=== PATIENT | female | born 1975 | race Caucasian/White ===

== ENCOUNTER 2017-05-04 08:41 | Outpatient (CLI) ==
[2016-07-23 14:58] VITALS: BMI 56.3
[2017-05-04 09:47] LABS: ALBUMIN 3.2 g/dL (3.4-5.0); ALBUMIN/GLOBULIN RATIO 0.94; ANION GAP 13.2; BILIRUBIN,TOTAL 0.34 mg/dL (0.00-1.20); BUN/CREATININE RATIO 11.76; CHOL/HDL RATIO 3.1 (4.5-5.5); CREATININE 0.68 mg/dL (0.60-1.30); POTASSIUM 4.2 mmol/L (3.5-5.10); TOTAL PROTEIN 6.6 g/dL (6.4-8.2)
== END 2017-05-04 08:42 | disposition home or self-care (01) ==
LOC: LAB 08:41
PROVIDERS: ATTEND Physician Assistant
DX: E11.65 Type 2 diabetes mellitus with hyperglycemia (principal); E78.2 Mixed hyperlipidemia
CPT/HCPCS: 36415; 80053; 80061; 83036

== ENCOUNTER 2017-07-30 08:33 | Outpatient (CLI) ==
[2016-07-23 14:58] VITALS: BMI 56.3
[2017-07-30 09:15] LABS: ALBUMIN 2.9 g/dL (3.4-5.0); ALBUMIN/GLOBULIN RATIO 0.76; ANION GAP 9.2; BILIRUBIN,TOTAL 0.25 mg/dL (0.00-1.20); BUN/CREATININE RATIO 16.66; CALCIUM 8.9 mg/dL (8.2-10.2); CREATININE 0.66 mg/dL (0.60-1.30); POTASSIUM 4.2 mmol/L (3.5-5.10); TOTAL PROTEIN 6.7 g/dL (6.4-8.2)
== END 2017-07-30 08:34 | disposition home or self-care (01) ==
LOC: LAB 08:33
PROVIDERS: ATTEND Physician Assistant
DX: E11.65 Type 2 diabetes mellitus with hyperglycemia (principal)
CPT/HCPCS: 36415; 80053; 83036

== ENCOUNTER 2017-09-11 07:15 | Emergency (ER) ==
[2017-09-11 07:22] VITALS: BP 158/90; TEMP 100.5; BMI 54.5
--- NOTE | 2017-09-11 07:39 | ED.PDOC ---
General ED Provider: Dr. KIEL ALLEN Chief Complaint: Cough Stated Complaint: flu like symptoms Time Seen by Physician: 07:17 Mode of Arrival: Walk-In Information Source: Patient Exam Limitations: No limitations Primary Care Provider: DOLORES ROMERO Nursing and Triage Documentation Reviewed and Agree: Yes Reviewed sepsis parameters & appropriate labs ordered?: Yes System Inflammatory Response Syndrome: Not Applicable Sepsis Protocol: For patient's 13 years and over: Temp is 96.8 and below OR 101 and greater Pulse >90 BPM Resp >20/minute Acutely Altered Mental Status Are patient's symptoms suggestive of a new infection, such as: -Pneumonia -Skin, Soft Tissue -Endocarditis -UTI -Bone, Joint Infection -Implantable Device -Acute Abdominal Infection -Wound Infection -Meningitis -Blood Stream Catheter Infection -Unknown Respiratory Complaint Exam - Respiratory Complaint/Exam Onset/Duration: 1 day Symptoms Are: Still present Initial Severity: Mild Current Severity: Mild Location: Chest Character: Reports: Non-productive cough Aggravating: Reports: None Associated Signs and Symptoms: Reports: URI. Denies: Rapid breathing, Dyspnea, Fever, Chills, Chest pain, Pleuritic chest pain, Wheezing, Hemoptysis, Dizziness , Calf pain, Calf swelling, Edema, Nasal congestion, Hoarseness, Sinus discomfort, Vomiting, Sore throat, Weight loss, Decreased oral intake, Increased thirst, Increased appetite, Increased urination Related History: Reports: Similar episode History of Healthcare-Acquired Pneumonia: No Related Surgical History: Reports: None Pulmonary Embolism Risk Factors: None Cardiac Risk Factors: Reports: None Pseudomonas Risk Factors: Reports: None Tuberculosis Risk Factors: Reports: None Status Asthmaticus Risk Factors: Reports: None Home Oxygen Use: No Recent Stress Test: No Recent Echo/LV Function: No Current Antibiotic Use: No Current Asthma Medication Use: No Respiratory Distress: None Inadequate Respiratory Effort: No Dysphagia Present: No Stridor Present: No JVD Present: No Accessory Muscle Use: No Retractions: Not Present Differential Diagnoses: Bronchitis Review of Systems - Review Of Systems Constitutional: Reports: Malaise Eyes: Reports: No symptoms Ears, Nose, Mouth, Throat: Reports: Throat pain Respiratory: Reports: Cough Cardiac: Reports: No symptoms GI: Reports: No symptoms : Reports: No symptoms Musculoskeletal: Reports: No symptoms Skin: Reports: No symptoms Neurological: Reports: No symptoms Endocrine: Reports: No symptoms Hematologic/Lymphatic: Reports: No symptoms All Other Systems: Reviewed and Negative Past Medical History - Past Medical History Previously Healthy: Yes Endocrine: Reports: DM 2 Cardiovascular: Reports: Hypertension Respiratory: Reports: None Hematological: Reports: None Gastrointestinal: Reports: None Genitourinary: Reports: None Neuro/Psych: Reports: None Musculoskeletal: Reports: None Cancer: Reports: None Last Menstrual Period: 09/11/17 - Surgical History General Surgical History: Reports: None - Family History Family History: Reports: None - Social History Smoking Status: Former smoker Hx Substance Use: No Alcohol Screening: Occasionally - Immunizations Tetanus Shot up to Date: Yes Physical Exam - Physical Exam Appearance: Well-appearing, No pain distress, Well-nourished Eyes: CAROLANN, EOMI, Conjunctiva clear ENT: Erythema Respiratory: Airway patent, Breath sounds clear, Breath sounds equal, Respirations nonlabored Cardiovascular: RRR, Pulses normal, No rub, No murmur GI/: Soft, Nontender, No masses, Bowel sounds normal, No Organomegaly Musculoskeletal: Normal strength, ROM intact, No edema, No calf tenderness Skin: Warm, Dry, Normal color Neurological: Sensation intact, Motor intact, Reflexes intact, Cranial nerves intact, Alert, Oriented Psychiatric: Affect appropriate, Mood appropriate Critical Care Note - Critical Care Note Total Time (mins): 0 Course - Course Orders, Labs, Meds: Orders Category Date Time Status FLU A & B RAPID TEST [MOLECULAR FLU A/B] Stat LAB 09/11/17 07:30 Received Vital Signs: Temp Pulse Resp BP Pulse Ox 09/11/17 07:16 100.5 F H 107 H 18 158/90 H 97 Departure - Departure Time of Disposition: 07:38 Disposition: HOME SELF-CARE Discharge Problem: Cough, Bronchitis Instructions: Viral Syndrome (ED), Acute Bronchitis (ED) Condition: Good Pt referred to PMD for follow-up: Yes Additional Instructions: Please call your Family Physician as soon as possible to schedule a follow-up appointment. Allergies/Adverse Reactions: Allergies No Known Allergies Allergy (Unverified 09/11/17 07:20) Home Medications: Ambulatory Orders Lisinopril [Zestril] 5 mg PO DAILY 09/11/17 Metformin HCl 500 mg PO TID 09/11/17 Disposition Discussed With: Patient, Family
== END 2017-09-11 08:10 | disposition home or self-care (01) ==
LOC: ED 07:15
DX: J40 Bronchitis, not specified as acute or chronic (principal)
CPT/HCPCS: 87502; 99283

== ENCOUNTER 2017-10-25 09:11 | Outpatient (CLI) | END 2017-10-25 09:12 | disposition home or self-care (01) | LOC: LAB 09:11 | PROVIDERS: ATTEND Physician Assistant | DX: E11.65 Type 2 diabetes mellitus with hyperglycemia (principal); E78.2 Mixed hyperlipidemia; E66.01 Morbid (severe) obesity due to excess calories | CPT/HCPCS: 36415; 80053; 80061; 83036 ==

== ENCOUNTER 2018-04-26 09:01 | Outpatient (CLI) | END 2018-04-26 09:02 | disposition home or self-care (01) | LOC: LAB 09:01 | PROVIDERS: ATTEND Nurse Practitioner | DX: E11.65 Type 2 diabetes mellitus with hyperglycemia (principal); E78.2 Mixed hyperlipidemia; F41.9 Anxiety disorder, unspecified | CPT/HCPCS: 36415; 80053; 83036; 84443; 85025 ==

== ENCOUNTER 2018-10-27 16:22 | Emergency (ER) | payer OTHER ==
[2018-10-27 16:28] VITALS: BP 176/68; TEMP 99.5; BMI 48.0
== END 2018-10-27 18:58 | disposition left against medical advice (07) ==
LOC: ED 16:22
DX: R05 Cough (principal); R52 Pain, unspecified

== ENCOUNTER 2019-11-03 16:11 | Observation (INO) ==
--- NOTE | 2019-11-03 16:47 | ED.PDOC ---
General ED Provider: Dr. BELEN THORNTON Chief Complaint: Non-specific Complaint Stated Complaint: In from [facility]. Had visit today - labs drawn and then confirmed (lab/medical report sent to ER). Hgb 6.0 Patient reports that September ER visit (elsewhere) - Hgb was 8.0 Had a heavy period at that time. No other raciel bleeding - denies dark stool - no emesis. No prior history of Anemia or transfusions. No major medical issues. Time Seen by Physician: 16:25 Mode of Arrival: Walk-In Information Source: Patient Exam Limitations: No limitations Primary Care Provider: TOM SARAVIA Nursing and Triage Documentation Reviewed and Agree: Yes Does patient meet sepsis criteria?: No System Inflammatory Response Syndrome: Not Applicable Sepsis Protocol: For patient's 13 years and over: Temp is 96.8 and below OR 101 and greater Pulse >90 BPM Resp >20/minute Acutely Altered Mental Status Are patient's symptoms suggestive of a new infection, such as: -Pneumonia -Skin, Soft Tissue -Endocarditis -UTI -Bone, Joint Infection -Implantable Device -Acute Abdominal Infection -Wound Infection -Meningitis -Blood Stream Catheter Infection -Unknown Review of Systems Review Of Systems Constitutional: Reports No symptoms Ears, Nose, Mouth, Throat: Reports No symptoms Respiratory: Reports No symptoms; Denies Cough Cardiac: Reports No symptoms; Denies Chest pain and Edema GI: Reports No symptoms; Denies Abdominal pain, Blood streaked bowels, C onstipated, Diarrhea, Nausea and Vomiting : Reports No symptoms Skin: Reports No symptoms All Other Systems: Reviewed and Negative [facility] Medical History Anxiety (Acute) Heavy menses (Acute) Mixed hyperlipidemia (Inactive) Type 2 diabetes mellitus (Inactive) Social History Smoking and tobacco status: Current every day smoker Female Reproductive History Menstrual Hx Hysterectomy: No Hx Tubal Ligation: No Physical Exam Physical Exam Appearance: Reports Well-appearing Ill-appearing: None Pain Distress: None Eyes: Reports CAROLANN, EOMI and Conjunctiva clear ENT: Reports Nose normal and Oropharynx normal Neck: Supple Respiratory: Reports Airway patent, Breath sounds clear and Breath sounds equal Cardiovascular: Reports RRR and Pulses normal GI/: Reports Soft, Nontender and No masses Musculoskeletal: Reports Normal strength and ROM intact Skin: Reports Warm, Dry and Normal color Neurological: Reports Sensation intact and Motor intact Psychiatric: Reports Affect appropriate and Mood appropriate Physician Notification Case Discussed Physician Notified: Hanna/Hospitalist Time of Notification: 16:30 Critical Care Note Critical Care Note Total Time (mins): 10 Course Course Hematology/Chemistry: 11/04/19 13:55 11/04/19 04:00 Orders, Labs, Meds: Lab Review 11/03/19 16:50 Urine Color Yellow Urine Clarity Clear Urine pH 6.0 Ur Specific [place] <=1.005 Urine Protein Negative Urine Glucose (UA) Negative Urine Ketones Negative Urine Blood Trace-intact H Urine Nitrite Negative Urine Bilirubin Negative Urine Urobilinogen 0.2 Ur Leukocyte Esterase Trace H Urine Microscopic RBC 0-2 Urine Microscopic WBC 2-5 Ur Squamous Epith Cells 0-2 Orders Category Date Time Status URINALYSIS C & S IF INDICATED Stat LAB 11/03/19 16:50 Completed Medications Discontinued Medications Generic Name Dose Route Start Last Admin Trade Name Freq PRN Reason Stop Dose Admin Acetaminophen 650 mg 11/03/19 18:14 11/04/19 04:26 Tylenol PO 11/03/19 18:15 Not Given ONCE STA Acetaminophen 650 mg 11/03/19 22:45 11/04/19 00:04 Tylenol PO 11/03/19 22:46 650 mg ONCE STA Administration Acetaminophen 650 mg 11/04/19 09:10 11/04/19 09:42 Tylenol PO 11/04/19 09:11 650 mg ONCE STA Administration Diphenhydramine HCl 25 mg 11/03/19 18:24 11/04/19 04:26 Benadryl PO 11/03/19 18:25 Not Given ONCE STA Diphenhydramine HCl 25 mg 11/03/19 22:45 11/03/19 22:54 Benadryl PO 11/03/19 22:46 25 mg ONCE STA Administration Diphenhydramine HCl 25 mg 11/04/19 08:48 11/04/19 09:42 Benadryl PO 11/04/19 08:49 25 mg ONCE STA Administration Furosemide 20 mg 11/03/19 18:14 11/04/19 04:26 Lasix IVP 11/03/19 18:15 Not Given ONCE STA Vital Signs: Temp Pulse Resp BP Pulse Ox 11/03/19 16:11 99.4 F 114 H 18 175/103 H 100 Discharge Plan Discharge Patient Disposition: PLACED OBSERVATION Discharge Problem: Anemia ED Provider: BELEN THORNTON Condition: Good Interventions: Discharge Last Done: 11/03/19 18:04 Discharge Date/Time: 11/03/19 18:04
--- NOTE | 2019-11-03 17:59 | PCM ---
Chief Complaint Chief Complaint: "Low iron---6.0" History of Present Illness History of Present Illness: Morelia Jose is a 44yo female patient from [facility] referral sent to [facility] ER 11/03/2019 16:11 for c/o's "low iron---6.0". Patient notes since March 2019 she has been having heavier menses w/ cramping and has been seen by PA at her [facility] clinic w/ Vaginal US and PAP smear done w/ negative results per patient report. She was at PCP appt today and referred to [facility] ER due to Hgb 6.0 for needed transfusion. In the recent months,she was put on Provera that has since been d/c'd as it did not help her symptoms. No records were sent from her clinic with her to this facility. She notes 3 weeks ago that her regular monthly menses was a 4 hr gushing of maroon to green red blood w/ many small hamburger sized clots. She has had fatigue, "mild" depression, mild to moderate cramping w/ menses that usually lasts 3-5 days w/ moderate vaginal flow/no clots relieved w/ Ibuprofen 600mg prn, and increased generalized weakness w/ occasional panic attacks. She denies severe abdominal/pelvic pain, f/c, hot flashes, loss of appetite, N/V, sweats, vaginal d/c between menses, pain w/ intercourse, SOB, BERRIOS, orthopnea or other symptoms of illness. Ibuprofen is the only treatment used besides rest w/ some relief w/ both. She denies STD hx or other significant health problems at present. She was treated for HTN, Diabetes, and HLD in the past that resolved w/ her weight loss program and approximately 60lb wt. loss in last 2 yrs. Patient does admit to crying in ER w/ anxiety because of her low blood count. Test results were reviewed w/ patient and family and she was reassured that she would be a candidate for blood transfusion w/ her blood levels checked afterwards and that she would be stable before being discharge. She denies any active bleeding since 3 weeks ago. ER labs are UA-essentially WNL and CBC normal except H/H 6.0/22.7, MCV 68.8, MCH 18.2, MCHC 26.4, RDW 19.3, Microcytosis 1+, and Hyperchromasis 1+. Chem profile has been ordered w/ type & cross match for 2 units PRBC's upon arrival to floor. Patient is being admitted for observation with Acute Blood Loss Anemia/Menorrhagia, and transfusion 2 units PRBC's, monitoring of labs, and VS w/ elevated BP that was normal at PCP office today 130's /70's, was elevated in ER 175/103 to 168/72 P88 and now 130/70's after arrival to the unit. Patient no nick her BP gets high when she is anxious. Patient seen in ER by PAPER PRODUCTS INSPECTOR hospitalist w/ acceptance of admission and is not actively bleeding for 3 weeks. She notes that in prior months she was told to take iron medication OTC but has not been very consistent w/ no recent doses yet. Patient has confirmed her full code status per review of ACLS protocol w/ P[employer]ER PRODUCTS INSPECTOR hospitalist. Review of Systems Constitutional: Reports weakness (mild generalized), fatigue and other; Denies fever, chills, sweats and loss of appetite Eyes: Denies blurred vision, double-vision, discharge, itching, pain, redness and photophobia Ears: Denies pain, bleeding, drainage, ringing and hearing loss Nose: Reports other; Denies bleeding, congestion and discharge Throat: Denies pain, swelling and voice change Mouth: Denies bleeding, pain and swelling Respiratory: Denies cough, shortness of air, wheeze, hemoptysis and pain with breathing Cardiovascular: Denies chest pain, left arm pain, diaphoresis, orthopnea, edema, palpitations and syncope Gastrointestinal: Denies abdominal pain, nausea, vomiting, diarrhea, melena, hematemesis, hematochezia, dysphagia and constipation Genitourinary: Reports frequency and abnormal bleeding (None at present; 3 weeks ago 4 hr gushing w/ moderate sized hamburger clots); Denies dysuria, hematuria, incontinence, flank pain, vaginal discharge and pelvic pain Last Menstrual Cycle: 3 weeks ago Neurological: Reports dizziness; Denies headache, seizure, numbness, weakness, speech difficulty, problems with walking, tremor and fainting Musculoskeletal: Denies pain and swelling in joints Skin: Denies rash, pruritus, lacerations, wounds and bruising Hematology: Reports easy bleeding (taking lots of Ibuprofen w/ menses ); Denies easy bruising and swollen glands Endocrine: Reports polyuria ("I drink lots of water.") and other; Denies weight changes, cold intolerance, heat intolerance, excessive thirst and excessive hunger Psychiatric: Reports depression (mild in last few months) and anxiety (1 anxiety attack per week); Denies sleeplessness, hopelessness, suicidal and hallucinations Habits: Reports tobacco use Allergies Allergies Allergy/AdvReac Type Severity Reaction Status Date / Time No Known Allergies Allergy Uncoded 11/03/19 16:43 [facility] Medical History (Updated 11/03/19 @ 18:58 by MARISOL HENDRICKSON) Anxiety (Acute) Heavy menses (Acute) Mixed hyperlipidemia (Inactive) Type 2 diabetes mellitus (Inactive) Social History Smoking and tobacco status: Current every day smoker Medications Medications: No home medications per review w/ patient No medications given in ER. Meds to be ordered w/ blood transfusion. See Plan of care. Body Composition Height: 5 ft 2 in Weight: 261 lb 2 oz Body Mass Index (BMI): 47.7 Vital Signs Temperature: 99.4 F Pulse Rate: 114 Respiratory Rate: 18 Blood Pressure: 175/103 O2 Sat by Pulse Oximetry: 100 Physical Examination Appearance: Reports Ill-appearing Ill-appearing: Mild Pain Distress: None Eyes: Reports CAROLANN, EOMI, Conjunctiva clear and Conjunctiva pale; Denies Conjunctiva inflammed ENT: Reports Ears normal, Nose normal and Oropharynx normal; Denies Rhinorrhea and Epistaxis Neck: Supple Respiratory: Reports Airway patent, Breath sounds clear, Breath sounds equal and Respirations nonlabored; Denies Crackles, Rhonchi, Wheezes and Retractions Cardiovascular: Reports RRR (Telemetry SR Rate 88), Pulses normal, No rub and No murmur GI/: Reports Soft, Nontender, No masses, Bowel sounds normal and No Organomegaly Musculoskeletal: Reports Normal strength, ROM intact, No edema and No calf tenderness Skin: Reports Warm, Dry and Pale; Denies Diaphoretic and Cyanotic Neurological: Reports Sensation intact, Motor intact, Reflexes intact, Cranial nerves intact, Alert and Oriented (X4) Psychiatric: Reports Affect appropriate, Mood appropriate and Anxious (mild but calmed down w/in 30 minutes after seen by P[employer]ODU[employer] INSPECTOR and explained plan of care and monitoring, etc. Patient verbalizes understanding and agrees w/ plan of care.) Lab/Tests/Diagnostic Imaging Lab/Tests/Diagnostic Imaging: Lab Review Laboratory Results Urine Color Yellow (YELLOW) 11/03/19 16:50 Urine Clarity Clear (CLEAR) 11/03/19 16:50 Urine pH 6.0 (5-9) 11/03/19 16:50 Ur Specific [place] <=1.005 (1.005-1.030) 11/03/19 16:50 Urine Protein Negative (NEGATIVE) 11/03/19 16:50 Urine Glucose (UA) Negative (NEGATIVE) 11/03/19 16:50 Urine Ketones Negative (NEGATIVE) 11/03/19 16:50 Urine Blood Trace-intact (NEGATIVE) H 11/03/19 16:50 Urine Nitrite Negative (NEGATIVE) 11/03/19 16:50 Urine Bilirubin Negative (NEGATIVE) 11/03/19 16:50 Urine Urobilinogen 0.2 (0.2) 11/03/19 16:50 Ur Leukocyte Esterase Trace (NEGATIVE) H 11/03/19 16:50 Urine Microscopic RBC 0-2 (0-2) 11/03/19 16:50 Urine Microscopic WBC 2-5 (0-2) 11/03/19 16:50 Ur Squamous Epith Cells 0-2 (0-5) 11/03/19 16:50 Urine Urobilinogen 0.2 Ur Leukocyte Esterase Trace H Urine Microscopic RBC 0-2 Urine Microscopic WBC 2-5 Ur Squamous Epith Cells 0-2 Orders Category Date Time Status ADMIT OBSERVATION [PLACE PATIENT OBSERVATION] .TO ADMISSION 11/03/19 17:38 Active MEDSURG (MONITORED BED) INTAKE & OUTPUT Q8HR CARE 11/03/19 17:40 Active TELEMETRY MONITORING TELE CARE 11/03/19 17:39 Active VITAL SIGNS Q8HR CARE 11/03/19 17:40 Active REGULAR DIET DIETARY 11/03/19 Dinner Ordered CBC W/ AUTO DIFF DAILY@0600 LAB 11/04/19 06:00 Ordered CBC W/ AUTO DIFF DAILY@0600 LAB 11/05/19 06:00 Ordered COMPREHENSIVE METABOLIC PANEL DAILY@0600 LAB 11/04/19 06:00 Ordered COMPREHENSIVE METABOLIC PANEL DAILY@0600 LAB 11/05/19 06:00 Ordered URINALYSIS C & S IF INDICATED Stat LAB 11/03/19 16:50 Completed RESUSCITATION STATUS Routine OTHERS 11/03/19 17:39 Ordered Assessment (1) Anemia due to blood loss, acute: Status: Acute Code(s): D62 - Acute posthemorrhagic anemia SNOMED Code(s): 889148588 (2) Heavy menses: Status: Acute Code(s): N92.0 - Excessive and frequent menstruation with regular cycle SNOMED Code(s): 045623580 Qualifiers: Menorrhagia type: with regular cycle Qualified Code(s): N92.0 - Excessive and frequent menstruation with regular cycle (3) Depression with anxiety: Status: Acute Code(s): F41.8 - Other specified anxiety disorders SNOMED Code(s): 24286692 Plan Plan: Anemia d/t Acute Blood Loss & Heavy Menses--Worsening w/ no active bleeding known at this time. H/H 6.0/22.7, MCV 68.8, MCH 18.2, MCHC 26.4, RDW 19.3, Microcytosis 1+, and Hyperchromasis 1+. Transfuse w/ 2 U PRBC's post type & Xmatch. Give benadryl & tylenol prior to 1st unit and between 2 units w/ Lasix 20mg IVP on same schedule if SBP >170. Telemetry. Recheck H/H 1 hr after 2nd unit of blood. Monitor patient for vaginal and other signs of bleeding. Call P[employer] INSPECTOR hospitalist if any concerns. CMP ordered prior to transfusion. VS per blood transfusion protocol. Patient HFR during transfusion and until Hgb 10.0 and patient free of any symptoms of hypotension.; will need to see PCP and get GARDEN WORKER consult post transfusion for further evaluation and possible hematology consult to study bleeding issues. Repeat CMP and H/H in AM as needed. Depression w/ anxiety--stable at present-denies SI/HI or past hx of same. Needs further evaluation per PCP w/ Thyroid studies and possible MH referral. Monitor patient.
[2019-11-03 18:33] VITALS: BMI 47.5
[2019-11-03] MEDS: BENADRYL PO STA (22:54)
[2019-11-04] MEDS: TYLENOL PO STA ×3 (00:04→09:42)
[2019-11-04 04:09] LABS: HEMATOCRIT 26.1 % (37.0-47.0)
[2019-11-04] MEDS: BENADRYL PO STA ×2 (04:26→09:42)
[2019-11-04] MEDS: LASIX IVP STA (04:26)
--- NOTE | 2019-11-04 08:32 | PCM.PROG ---
Date Seen by Provider: 11/04/19 Time Seen by Provider: 08:32 Objective: Vitals: T=98 F, P=77, R=18, JP=015/82, SPO2=99 HEENT: [] Neck: [] Lungs: [] CVS: [] Abdomen: [] Extremities: [] Neurological: [] Skin: [] Lab/Tests/Diagnostic Imaging: [] (1) Anemia due to blood loss, acute: Status: Acute Code(s): D62 - Acute posthemorrhagic anemia SNOMED Code(s): 835352108 (2) Heavy menses: Status: Acute Code(s): N92.0 - Excessive and frequent menstruation with regular cycle SNOMED Code(s): 712614776 (3) Depression with anxiety: Status: Acute Code(s): F41.8 - Other specified anxiety disorders SNOMED Code(s): 02191836
[2019-11-04] MEDS ORDERED: TYLENOL LIQUID 650 MG/20.3 ML PO STA (08:48)
[2019-11-04 08:59] LABS: HEMATOCRIT 26.1 % (37.0-47.0)
--- NOTE | 2019-11-04 11:08 | PCM.DC ---
Final Diagnosis: Acute blood loss anemia Heavy menses--DUB (1) Anemia due to blood loss, acute: Status: Acute Code(s): D62 - Acute posthemorrhagic anemia SNOMED Code(s): 401847249 (2) Heavy menses: Status: Acute Code(s): N92.0 - Excessive and frequent menstruation with regular cycle SNOMED Code(s): 990783378 Qualifiers: Menorrhagia type: with regular cycle Qualified Code(s): N92.0 - Excessi ve and frequent menstruation with regular cycle (3) Depression with anxiety: Status: Acute Code(s): F41.8 - Other specified anxiety disorders SNOMED Code(s): 63258421 Reason for Hospitalization: Acute blood loss anemia needing transfusions. Prognosis at Discharge: Good w/ referral to EXCAVATOR BACKHOE OPERATOR per PCP. Condition at Discharge: Stable and improving. At risk for re-occurence of heavy menses w/ acute blood loss next menses in approximately 1 week . Needs EXCAVATOR BACKHOE OPERATOR consult [facility]. Medications at Discharge: Ambulatory Orders Ferrous Sulfate 325mg 1 tab PO TID w/ meals 11/04/2019 Vitamin C 1000mg 1 tab PO daily 11/04/2019 Lab/Diagnostics: Laboratory Results WBC 7.64 K/ul (4.6-10.2) 11/04/19 04:00 RBC 3.57 10^6/ul (4.20-5.40) L 11/04/19 04:00 Hgb 7.5 g/dl (12.0-16.0) L 11/04/19 08:55 Hct 26.1 % (37.0-47.0) L 11/04/19 08:55 MCV 73.1 fl (81.0-99.0) L 11/04/19 04:00 MCH 20.7 pg (27.0-31.0) L 11/04/19 04:00 MCHC 28.4 (31.8-35.4) L 11/04/19 04:00 RDW Coeff of [place] 21.5 % (11.6-14.8) H 11/04/19 04:00 Plt Count 187 10^3/uL (140-440) 11/04/19 04:00 Immature Gran % (Auto) 0.3 % (0.0-5.0) 11/04/19 04:00 Neut % (Auto) 58.1 % (42.2-75.2) 11/04/19 04:00 Lymph % (Auto) 29.8 (10.0-50.0) 11/04/19 04:00 [place] % (Auto) 7.6 (0-10) 11/04/19 04:00 Eos % (Auto) 3.7 % (0.0-7.0) 11/04/19 04:00 Baso % (Auto) 0.5 % (0.0-3.0) 11/04/19 04:00 Immature Gran # (Auto) 0.0 (0.0-1.0) 11/04/19 04:00 Neut # (Auto) 4.4 K/ul (2.0-6.9) 11/04/19 04:00 Lymph # (Auto) 2.3 K/uL (0.60-3.4) 11/04/19 04:00 [place] # (Auto) 0.6 K/uL (0.4-2.0) 11/04/19 04:00 Eos # (Auto) 0.3 K/ul (0.0-0.7) 11/04/19 04:00 Baso # (Auto) 0.0 K/uL (0-0.2) 11/04/19 04:00 Sodium 136.9 mmol/L (134.5-145) 11/04/19 04:00 Potassium 3.55 mmol/L (3.5-5.1) 11/04/19 04:00 Chloride 104.8 mmol/L (98-107) 11/04/19 04:00 Carbon Dioxide 29.7 mmol/L (22-30.0) 11/04/19 04:00 Anion Gap 5.95 11/04/19 04:00 BUN 6.8 mg/dL (7-17) L 11/04/19 04:00 Creatinine 0.62 mg/dL (0.60-1.30) 11/04/19 04:00 Estimated GFR (MDRD) 105.00 mL/min 11/04/19 04:00 BUN/Creatinine Ratio 10.96 11/04/19 04:00 Glucose 114.9 mg/dL (74-106) H 11/04/19 04:00 Calcium 8.48 mg/dL (8.4-10.2) 11/04/19 04:00 Total Bilirubin 0.67 mg/dL (0.2-1.3) 11/04/19 04:00 AST 41.2 U/L (14-36) H 11/04/19 04:00 ALT 10.7 U/L (0-35) 11/04/19 04:00 Alkaline Phosphatase 61.4 U/L (38-126) 11/04/19 04:00 Total Protein 6.26 g/dL (6.3-8.2) L 11/04/19 04:00 Albumin 3.44 g/dL (3.5-5.0) L 11/04/19 04:00 Globulin 2.82 11/04/19 04:00 Albumin/Globulin Ratio 1.21 11/04/19 04:00 Urine Color Yellow (YELLOW) 11/03/19 16:50 Urine Clarity Clear (CLEAR) 11/03/19 16:50 Urine pH 6.0 (5-9) 11/03/19 16:50 Ur Specific [place] <=1.005 (1.005-1.030) 11/03/19 16:50 Urine Protein Negative (NEGATIVE) 11/03/19 16:50 Urine Glucose (UA) Negative (NEGATIVE) 11/03/19 16:50 Urine Ketones Negative (NEGATIVE) 11/03/19 16:50 Urine Blood Trace-intact (NEGATIVE) H 11/03/19 16:50 Urine Nitrite Negative (NEGATIVE) 11/03/19 16:50 Urine Bilirubin Negative (NEGATIVE) 11/03/19 16:50 Urine Urobilinogen 0.2 (0.2) 11/03/19 16:50 Ur Leukocyte Esterase Trace (NEGATIVE) H 11/03/19 16:50 Urine Microscopic RBC 0-2 (0-2) 11/03/19 16:50 Urine Microscopic WBC 2-5 (0-2) 11/03/19 16:50 Ur Squamous Epith Cells 0-2 (0-5) 11/03/19 16:50 Blood Type O POSITIVE 11/03/19 18:25 Antibody Screen Negative 11/03/19 18:25 Crossmatch (AHG) See Detail 11/03/19 18:25 Education Provided to Patient and Family: Call PCP (Primary Care Physician) off ice and see if you can get a referral to gynecology [facility] for consult for your excessive bleeding during menses. Take Ferrous Sulfate 325mg PO TID w/ meals and a 1000mg Vitamin C. See handout on constipation for dietary helps to prevent constipation w/ iron. Follow-up with your PCP immediately if you have another heavy menses to get your hemoglobin and hematocrit levels checked---you may need more transfusions. You should also discuss with your PCP a referral to hematology if bleeding is not controlled by gynecology. Activity as tolerated; get your rest as needed 8-10 hrs per night. Discuss your mild depression and anxiety w/ your PCP for further studies including thyroid studies. High iron & high fiber diet as per handout. Follow-ups: Foillow-up w/ PCP on Wednesday or return to ER prn heavy vaginal bleeding, severe SOB, severe fatigue, or any other concerning symptoms. Obtain EXCAVATOR BACKHOE OPERATOR consult re: acute blood loss w/ heavy menses requiring blood transfusions X3. Discharge Disposition: Home Hospital Course: Day 1 Patient arrived to [facility] ER as referral from her PCP d/t Hgb 6.0 w/ hx of heavy periods since 03/2019 and very heavy menses 3 weeks METAL CUT OFF SAW TENDER w/ several soaked pads over a 4hr period of gushing w/ medium "hamburger-sized" dark clots. CBC upon arrival to hospital was normal except RBC's 3.30, H/H 6.0/22.7, MCV 68.8, MCH 18.2, MCHC 26.4, RDW 19.3, Microcytosis 1+, and Hyperchromasis 1+. The patient was very anxious about her health condition upon arrival to hospital w/ no hx of HTN. BP was 165-176/68-103; after DIGITAL COMMUNICATIONS MANAGER Hospitalist saw pt. in ER for admission screening and patient was explained in detail her dx and treatment plan, she was relieved and felt less anxious w/ BP then returning to 130's/70's for remainder of her stay. Patient noted some fatigue but denies any other symptoms for the last few weeks. Patient denies active bleeding vaginally, hematemesis, hematochezia, hematuria, SOB, BERRIOS, CP, palpitations, edema, or other sxs of illness. She does not mild depression and up to 2 mild panic attacks/week in the last 2 months w/o SI or HI. Past tx for heavy menses were Provera w/o relief and OTC iron medication that she doesn't take routinely d/t nausea and constipation. Patient noted she had PAP smear and Pelvic US w/ no significant findings. Patient was admitted as observation as full code w/ initiation of 2 units Leukoreduced PRBC's that were completed approximately 03:00 11/04/2019. She tolerated the transfusions w/o reactions. Day 2 Patient is stable w/ negative assessment. Telemetry remained SR rate 80's most of stay. Patient feeling "much better" w/ more energy than yesterday. Sta nick she did not sleep well due to transfusion activities during the night. Her 1 hr post transfusion H/H 7.4/26.1 and then recheck 4 hrs later 08:55 7.5/26.1. Patient is anxious to go home, but in 1 week or before that she may be having menses; Hospitalist discussed recommended 1 more unit of PRBC's w/ patient agreeing w/ plan to d/c home after H/H rechecked. Patient given PRBC for a total 3 units and tolerated well w/o any reactions/side effects. Discharge Hgb 8.3 and Hct 28.3 1 hr post transfusion 11/04/2019 13:55. Patient d/c to f-u w/ PCP on Wednesday and EXCAVATOR BACKHOE OPERATOR referral [facility]--may need endometrial biopsy and management. Plan: Anemia d/t Acute Blood Loss & Heavy Menses--Stable at present w/o Vaginal bleeding. Improved w/ PRBC transfusions X3 units. D/C H/H H/H 6.0/22.7, MCV 68.8, MCH 18.2, MCHC 26.4, RDW 19.3, Microcytosis 1+, and Hyperchromasis 1+. Benadryl & tylenol prior to 1st unit and between 2 units w/ Lasix 20mg IVP prior to 1st unit w/ slightly elevated BP. Instructed patient to monitor vaginal bleeding by saturated pads # and size/number of clots for EXCAVATOR BACKHOE OPERATOR information if menses begins. PCP and get EXCAVATOR BACKHOE OPERATOR consult and possible hematology consult to study bleeding issues. Repeat CMP and H/H in AM as needed per PCP. Depression w/ anxiety--stable at present-denies SI/HI or past hx of same. Needs further evaluation per PCP w/ Thyroid studies and possible MH referral.
[2019-11-04 12:40] VITALS: BP 146/76; TEMP 97.5
[2019-11-04 14:01] LABS: HEMATOCRIT 28.3 % (37.0-47.0)
--- NOTE | 2019-11-06 10:12 | PCM.PROG ---
Order error removed for Transfusion RX Path Review Routine; entered in error w/ confirmation per Blood [facility].
--- NOTE | 2019-11-07 11:31 | PCM.PROG ---
F-u phone call post hospitalization w/ patient feeling better since discharge, but has intermittent days of mild dyspepsia w/ taking her oral iron supplementation. States she doesn't have a good appetite and is trying to take some yogurt w/ her meals which seems to help some. She talked yesterday w/ her PCP, Nadja Faust, who told the patient that she could take care of her probl ems in her office; no [employer] referral. Reinforced need to see E[employer] HELPER w/ probable uterine bx needed. Patient verbalized understanding and will talk more w/ her PCP. No other questions or concerns.
== END 2019-11-04 15:00 | disposition home or self-care (01) ==
LOC: ED 16:11 → MEDSURG B 16:11
PROVIDERS: ADMIT Nurse Practitioner Family; ATTEND Nurse Practitioner Family